=== PATIENT | male | born 1950 | race Caucasian/White ===

== ENCOUNTER → 2016-12-22 | Outpatient (CLI) | payer MEDICARE, BC ==
[~2016-12-22] MED LIST: ASPIRIN 81M81 MG/TA2 PO; BRILINTA90 MG PO; LOPRESSOR 225 MG/TAB PO; PREDNISONE20 MG PO
== END ==
LOC: COL.RAD 06:45
DX: Z12.2 Encounter for screening for malignant neoplasm of respiratory organs (principal); I70.0 Atherosclerosis of aorta; F17.200 Nicotine dependence, unspecified, uncomplicated

== ENCOUNTER → 2018-01-04 | Outpatient (CLI) | payer MEDICARE, BC | LOC: COL.RAD 07:28 | DX: R74.8 Abnormal levels of other serum enzymes (principal) ==

== ENCOUNTER 2018-02-07 07:15 | Day surgery (SDC) | payer MEDICARE, BC ==
[~2018-02-07] VITALS: Ht 170.2 cm; Wt 79.2 kg
[2018-02-07 07:45] VITALS: BP 119/77; PULSE 67; TEMP 97.4
[2018-02-07] MEDS ORDERED: PLAVIX 75MG TAB75 MG PO (07:52)
[2018-02-07] MEDS ORDERED: LIPITOR20 MG PO (07:54)
[2018-02-07 09:20] VITALS: BP 112/72; PULSE 69
[2018-02-07 09:35] VITALS: BP 121/62; PULSE 67
== END 2018-02-07 09:55 | disposition home or self-care (01) ==
LOC: SDCO 07:15
DX: K62.1 Rectal polyp (principal); K57.30 Diverticulosis of large intestine without perforation or abscess without bleeding; I25.10 Atherosclerotic heart disease of native coronary artery without angina pectoris; I10 Essential (primary) hypertension; F17.210 Nicotine dependence, cigarettes, uncomplicated; N52.9 Male erectile dysfunction, unspecified; Z79.82 Long term (current) use of aspirin; Z79.02 Long term (current) use of antithrombotics/antiplatelets
CPT/HCPCS: OP; J2704; J7030

== ENCOUNTER → 2019-09-19 | Outpatient (CLI) | payer MEDICARE, BC ==
[~2019-09-19] MED LIST changes: +LIPITOR20 MG PO; +PLAVIX 75MG TAB75 MG PO
== END ==
LOC: COL.RAD 12:39
DX: N43.3 Hydrocele, unspecified (principal); N50.3 Cyst of epididymis

== ENCOUNTER → 2020-09-17 | Outpatient (CLI) | payer MEDICARE, BC | LOC: COL.PUL 07:04 | DX: R06.02 Shortness of breath (principal); F17.200 Nicotine dependence, unspecified, uncomplicated ==

== ENCOUNTER → 2021-04-06 | Outpatient (CLI) | payer MEDICARE, BC | LOC: COL.RAD 06:51 | DX: Z12.2 Encounter for screening for malignant neoplasm of respiratory organs (principal); R91.8 Other nonspecific abnormal finding of lung field; Z87.891 Personal history of nicotine dependence ==

== ENCOUNTER → 2022-04-14 | Outpatient (CLI) | payer MEDICARE, BC | LOC: COL.RAD 12:19 | DX: Z12.2 Encounter for screening for malignant neoplasm of respiratory organs (principal); J43.9 Emphysema, unspecified; Z87.891 Personal history of nicotine dependence ==

== ENCOUNTER → 2023-08-16 | Outpatient (CLI) | payer MEDICARE, BC | LOC: COL.RAD 14:16 | DX: N43.3 Hydrocele, unspecified (principal); N44.2 Benign cyst of testis ==

== ENCOUNTER → 2023-11-09 | Outpatient (CLI) | payer MEDICARE, BC | LOC: COL.RAD 13:22 | DX: Q53.111 Unilateral intraabdominal testis (principal); R93.5 Abnormal findings on diagnostic imaging of other abdominal regions, including retroperitoneum ==